=== PATIENT | male | born 1990 | race African-American/Black ===

== ENCOUNTER 2017-06-16 07:12 | Emergency (ER) | payer OTHER ==
[~2017-06-16] VITALS: Ht 170.2 cm; Wt 65.8 kg
[~2017-06-16 07:12] MED LIST: ALBU0.5N6 IN; ALBU90AE13 INH; ALBUTEROL0.083 % IN; CLARITIN10 M1 PO; FLOVENT HFA44 MCG IN
[2017-06-16 07:20] VITALS: TEMP 97.8
[2017-06-16 08:43] LABS: PLATELET COUNT 241 K/uL (142-355)
[2017-06-16 08:50] LABS: POTASSIUM 3.8 mmol/L (3.6-5.2); SODIUM 140 mmol/L (136-145)
[2017-06-16 10:32] VITALS: BP 102/60
== END 2017-06-16 10:35 | disposition home or self-care (01) ==
LOC: ED 07:12
PROVIDERS: Emergency Medicine
DX: N20.1 Calculus of ureter (principal)
CPT/HCPCS: 36415; 80053; 80307; 81000; 82550; 82553; 84484; 85027; 96360; 96375; 99284; G0479; J1885; J2405